=== PATIENT | female | born 1955 | race Caucasian/White ===

== ENCOUNTER 2022-08-12 10:59 | Outpatient (CLI) | payer MEDICARE, OTHER, SELFPAY ==
[2022-08-12 20:14] LABS: Alanine Aminotransferase 26 U/L (6-35); Albumin Level 4.2 g/dL (3.5-5.1); Alkaline Phosphatase 68 U/L (38-126); Anion Gap 9 mmol/L (8-16); Aspartate Amino Transferase 36 U/L (14-36); Bilirubin,Total 0.5 mg/dL (0.2-1.3); Blood Urea Nitrogen 19 mg/dL (7-17); Calcium 8.8 mg/dL (8.4-10.2); Carbon Dioxide 25 mmol/L (22-30); Chloride 106 mmol/L (98-107); Cholesterol 159 mg/dL (0-200); Estimated Glomerular Filt Rate 55; Glucose 106 mg/dL (65-110); HDL Direct 46 mg/dL; Potassium 4.8 mmol/L (3.4-5.0); Sodium 140 mmol/L (137-145); Triglycerides 104 mg/dL (<150)
[2022-08-12 20:25] LABS: LDL Cholesterol Direct 83 mg/dL
[2022-08-12 20:34] LABS: Hemoglobin A1C 5.7 % (<5.7)
== END 2022-08-12 11:00 | disposition home or self-care (01) ==
LOC: ANHGOSHLAB 11:00
PROVIDERS: PCP Family Medicine; Visit Provider Family Medicine
DX: Z13.228 Encounter for screening for other metabolic disorders (principal); R73.01 Impaired fasting glucose; E78.5 Hyperlipidemia, unspecified; E03.9 Hypothyroidism, unspecified
CPT/HCPCS: 36415; 80053; 80061; 83036; 84443

== ENCOUNTER 2023-07-05 11:22 | Outpatient (CLI) | payer MEDICARE, OTHER, SELFPAY ==
[2023-07-05 14:26] LABS: Basophils Absolute Auto 0.1 K/mm3 (0.0-0.1); Basophils Percent Auto 0.7 % (0.2-1.2); Eosinophils Absolute Auto 0.2 K/mm3 (0-0.3); Eosinophils Percent Auto 2.7 % (0-4.4); Hematocrit 40.2 % (37.0-47.0); Hemoglobin 12.8 g/dL (12.0-15.0); Immature Granulocyte Absolute 0.02 K/mm3 (0.00-0.031); Immature Granulocyte Percent A 0.2 % (0-0.5); Lymphocytes Absolute Auto 2.58 K/mm3 (0.9-3.2); Lymphocytes Percent Auto 30.7 % (18.3-44.2); Mean Corpuscular HGB Conc 31.8 g/dl (32-36); Mean Corpuscular Hemoglobin 27.7 pg (26-34); Mean Platelet Volume 11.9 fl (7.4-10.4); Monocytes Absolute Auto 0.6 K/mm3 (0.1-0.6); Monocytes Percent Auto 7.3 % (2.6-8.5); Neutrophils Absolute Auto 4.9 K/mm3 (1.3-6.7); Neutrophils Percent Auto 58.4 % (45.5-73.1); Platelet Count Result 151 k/mm3 (150-375); Red Blood Count 4.62 M/mm3 (4.2-5.4); Red Cell Distribution Width 13.5 % (11.5-14.5); White Blood Count 8.4 K/mm3 (4.5-10.0)
[2023-07-05 14:41] LABS: Alanine Aminotransferase 39 U/L (6-35); Alkaline Phosphatase 65 U/L (38-126); Anion Gap 7 mmol/L (8-16); Aspartate Amino Transferase 43 U/L (14-36); Bilirubin,Total 0.9 mg/dL (0.2-1.3); Blood Urea Nitrogen 22 mg/dL (7-17); Calcium 8.8 mg/dL (8.4-10.2); Carbon Dioxide 25 mmol/L (22-30); Chloride 105 mmol/L (98-107); Estimated Glomerular Filt Rate 41; Glucose 113 mg/dL (65-110); Potassium 4.9 mmol/L (3.4-5.0); Sodium 137 mmol/L (137-145)
[2023-07-05 14:54] LABS: NT Pro B Type Natriuretic Pept > 30000 pg/mL (19.9-100)
[2023-07-10 23:51] LABS: Vitamin D 1,25 (OH)2 Total 49 pg/mL (18-72); Vitamin D2 1,25 (OH)2 <8 pg/mL; Vitamin D3 1,25 (OH)2 49 pg/mL
== END 2023-07-05 11:23 | disposition home or self-care (01) ==
PROVIDERS: PCP Family Medicine; Visit Provider Nurse Practitioner Family
DX: R06.02 Shortness of breath (principal); I10 Essential (primary) hypertension; E03.9 Hypothyroidism, unspecified; E55.9 Vitamin D deficiency, unspecified
CPT/HCPCS: 36415; 80053; 82607; 82652; 83880; 84443; 85025

== ENCOUNTER → 2023-07-05 11:36 | Outpatient (CLI) | payer MEDICARE, OTHER, SELFPAY ==
--- NOTE | ~2023-07-05 | XR_ITS ---
XR chest 2V 07/05/2023 11:53 Indication: Shortness of breath. Cough. Procedure: 2 view chest Comparison: 11/05/2010 Findings: Heart size normal. Chronic left basilar atelectasis/scarring. There are surgical changes of the left axilla. Right subclavian pacemaker lead tip in the right atrium. No focal air space disease , pulmonary edema, pleural effusion or suspected pneumothorax. Impression: 1: No acute cardiopulmonary disease. Reviewed, dictated and finalized at location L. Impression: 1: No acute cardiopulmonary disease.
== END ==
PROVIDERS: PCP Family Medicine; Visit Provider Nurse Practitioner Family
DX: R06.02 Shortness of breath (principal); R05.9 Cough, unspecified
CPT/HCPCS: 71046

== ENCOUNTER 2023-07-05 15:33 | Observation (INO) | payer MEDICARE, OTHER, SELFPAY ==
[2023-07-05] VITALS (19 sets, daily range): BP systolic 121–137; BP diastolic 80–101; PULSE 76–96; RESP 16–21; TEMP 36.6–37.1; O2SAT 98–100
--- NOTE | ~2023-07-05 | NM_ITS ---
EXAMINATION: NM lung vent and perfusion DATE: 07/05/2023 23:30 INDICATION: Shortness of breath. TECHNIQUE: 21.3 mCi Xenon-133 was administered for ventilation images. 5.01 mCi Tc-99m MAA was admini stered intravenously for perfusion images. Scintigraphic images of the chest were obtained. COMPARISON: Chest 2 views 07/05/2023 FINDINGS: The single breath ventilation image is normal. Ventilation images demonstrate diffuse retention bilat erally. Perfusion images demonstrate small matched defects in the lower lobes and upper lobes. IMPRESSION: 1. Low probability for pulmonary emboli. Reviewed, dictated and finalized at location A.
--- NOTE | ~2023-07-05 | US_ITS ---
EXAMINATION: US right upper quadrant DATE: 07/06/2023 08:56 INDICATION: Epigastric pain TECHNIQUE: Multiple grayscale and Doppler ultrasound images of the abdomen were obtained. COMPARISON: None available FINDINGS: The head, body, and tail of the pancreas are normal. The liver is normal with normal echoge nicity and echotexture. No surface nodularity. Normal hepatopetal flow in the main portal vein. The g allbladder is normal with no abnormal wall thickening, pericholecystic fluid or stones. The normal co mmon bile duct measures 3 mm. There was no sonographic Hickey sign. IMPRESSION: 1. Normal sonographic study of the gallbladder. Reviewed, dictated and finalized at location A.
--- NOTE | ~2023-07-05 | CT_ITS ---
EXAMINATION: CT abdomen pelvis wo con DATE: 07/05/2023 21:26 INDICATION: Abdominal pain TECHNIQUE: Computed tomography (CT) of the abdomen and pelvis was performed without intravenous contr ast. Automated exposure control and iterative reconstruction technique were employed. The dose-length product was 352.51 mGy-cm. COMPARISON: None FINDINGS: Smooth septal line thickening at the bilateral lung bases consistent with mild pulmonary edema. There are also small bilateral posterior layering pleural effusions. Mild atelectasis in the anterior left lower lobe and medial right middle lobe. Cardiomegaly. Small amount of atherosclerotic coronary dillan ry calcific lesion. No pericardial effusion. Distal tip of a single lead cardiac pacemaker/defibrilla tor positioned along the inferior basilar wall of the right ventricle. Liver is normal. No intra or e xtra hepatic biliary ductal dilation. There is subtle haziness to the fat surrounding the gallbladder which is nondistended but with gradient of increasing density dependently which could represent laye ring sludge, gallstones or potentially vicariously excreted contrast if there is been prior contrast administration. Pancreas, spleen and bilateral adrenal glands are normal. There is mild bilateral per inephric stranding along the otherwise normal appearing kidneys. Normal appendix. No bowel obstructio n or abnormal bowel wall thickening. Bladder, uterus and bilateral adnexa are unremarkable. Small sylwia unt of free fluid in the cul-de-sac. No tai peroneal gas. No pathologically enlarged upper abdomina l or pelvic lymphadenopathy. Mild lumbar and lower thoracic spondylosis. Transitional L5 segment whic h is sacralized on the left. IMPRESSION: 1. Likely congestive heart failure with cardiomegaly, mild pulmonary edema and very small bilateral p leural effusions. 2. Subtle haziness to the fat surrounding the gallbladder which demonstrates posterior layering sludg e and sludge or gallstones. There is however no evident gallbladder dilation to suggest acute cholecy stitis and the haziness to the fat along with the small amount of perinephric stranding could also be related to congestive heart failure. Could consider further evaluation with right upper quadrant ult rasound as clinically indicated. Reviewed, dictated and finalized at location A. IMPRESSION: 1. Likely congestive heart failure with cardiomegaly, mild pulmonary edema and very small bilateral pleural effusions. 2. Subtle haziness to the fat surrounding the gallbladder which demonstrates po sterior layering sludge and sludge or gallstones. There is however no evident g allbladder dilation to suggest acute cholecystitis and the haziness to the fat along with the small amount of perinephric stranding could also be related to c ongestive heart failure. Could consider further evaluation with right upper malcolm drant ultrasound as clinically indicated.
--- NOTE | 2023-07-05 16:14 | ECG_ITS ---
Measurements Intervals [place] Rate: 91 P: 77 GA: 179 QRS: -46 QRSD: 121 T: 114 QT: 371 QTc: 459 Interpretive Statements SINUS RHYTHM WITH SINUS ARRHYTHMIA LEFT ATRIAL ENLARGEMENT [-0.15mV P WAVE IN V1/V2] MARKED LEFT AXIS DEVIATION [QRS AXIS < -30] POSSIBLE ANTERIOR MYOCARDIAL INFARCTION , OF INDETERMINATE AGE [30 ms Q WAVE IN V3/V4, OR R < 0.2 mV IN V4] MODERATE T-WAVE ABNORMALITY, CONSIDER LATERAL ISCHEMIA [-0.1+ mV T WAVE IN I/aVL/V5/V6] NO PREVIOUS ECG AVAILABLE FOR COMPARISON Electronically Signed On 07-06-2023 11:32:53 CDT by Dillon Son M.D.
[2023-07-05 17:15] LABS: Troponin I 0.016 ng/mL (0.000-0.034)
--- NOTE | 2023-07-05 20:40 | ED.SOB ---
HPI - SOB/Dyspnea General Chief Complaint: Recheck/Abnormal Lab/Rx <Clair Polo PA-C - Last Filed: 07/06/23 02:06> Stated Complaint: abnormal labs <MAMADOU Rincon Last Filed: 07/06/23 02:06> Time Seen by Provider: 07/05/23 19:49 <MAMADOU Rincon Last Filed: 07/06/23 02:06> Source: patient <MAMADOU Rincon Last Filed: 07/06/23 02:06> Mode of arrival: ambulatory <MAMADOU Rincon Last Filed: 07/06/23 02:06> Limitations: no limitations <MAMADOU Rincon Last Filed: 07/06/23 02:06> History of Present Illness HPI Narrative: A 68-year-old female that presents to the emergency department for dyspnea. Ongoing over the last several days. Worse with lying flat. Was evaluated our primary office and told to come to the ER for an elevated BNP. Reports she thought she had a viral infection she has been struggling with some abdominal pain and nausea. Denies any fever, cough, chest pain, vomiting, or lower extremity edema. <MAMADOU Rincon Last Filed: 07/06/23 02:06> Related Data Home Medications: Home Medications Medication Instructions Recorded Confirmed carvedilol 12.5 mg tablet 12.5 mg PO QAM 08/12/22 07/06/23 carvedilol 25 mg tablet 25 mg PO DAILY 08/12/22 07/06/23 <MAMADOU Rincon Last Filed: 07/06/23 02:06> Allergies/Adverse Reactions: Allergies Allergy/AdvReac Type Severity Reaction Status Date / Time lisinopril Allergy Unknown unknown Verified 07/06/23 03:31 <MAMADOU Rincon Last Filed: 07/06/23 02:06> Review of Systems Review of Systems: CONSTITUTIONAL: Denies fever CARDIOVASCULAR: Denies chest pain, palpitations, or edema. RESPIRATORY: Reports dyspnea. Denies cough GASTROINTESTINAL: Reports abdominal pain, nausea. Denies vomiting, or diarrhea. GENITOURINARY: Denies dysuria <Clair Polo PA-C - Last Filed: 07/06/23 02:06> All systems reviewed & are unremarkable except as noted in HPI and below <Clair Polo PA-C - Last Filed: 07/06/23 02:06> FORMERLY [facility] Past Medical History Medical History: Medical History (Updated 07/06/23 @ 01:10 by Clair Polo PA-C) Cardiomyopathy Hypothyroidism (acquired) Irritable bowel syndrome without diarrhea Other hyperlipidemia Personal history of malignant neoplasm of breast <Clair Polo PA-C - Last Filed: 07/06/23 02:06> Surgical History Surgical History: Surgical History H/O eye surgery <Clair Polo PA-C - Last Filed: 07/06/23 02:06> Family History Family History: Family History Sibling Asthma Mother Family history of aortic aneurysm, Onset Age: 35 Father Acute myocardial infarction Other Family history of migraine headaches Hypothyroidism (acquired) <Clair Polo PA-C - Last Filed: 07/06/23 02:06> Social History Social History: Social History Smoking status: Never smoker Second hand tobacco smoke exposure: No Alcohol intake: never Substance use: never Substance use type: does not use Lack of Transportation: No Lack of Food: Never True Current Housing: I Have Housing Concerned About Future Housing: No Difficulty Paying Gas/Electric Bills: No Difficulty Paying for Meds: No Currently Unemployed: No Education: High School Diploma/GED Difficulty w/ Childcare or Family Care: No Living arrangements: with family Additional living arrangements comments: Daughter, and Children Occupation/Education: retired Gender identity (if verbalized by the patient): Female Sexual Orientation (if Verbalized by the Patient): Straight or Heterosexual Spiritual care concerns: No Agree to blood products: Yes <Clari Polo PA-C - Last Filed: 07/06/23 02:06> Exam Narrative: GENERAL: Well-wilberto
[2023-07-05 21:00] LABS: INR 1.2; Prothrombin Time 15.3 Seconds (11.1-14.7)
[2023-07-05 21:01] LABS: Partial Thromboplastin Time 29.8 SECONDS (22.3-36.8)
[2023-07-05 21:03] LABS: D Dimer 0.85 ug/mL (<0.48)
[2023-07-05] MEDS: carvediloL 25 MG TABLET PO (21:14)
[2023-07-05] MEDS: FUROSEMIDE INJ 40 MG/4 ML VIAL IV PUSH (22:07)
[2023-07-05 22:09] LABS: Influenza A QL RT-PCR Negative (Negative); Influenza B QL RT-PCR Negative (Negative); SARS-CoV-2 RNA PCR Negative (Negative)
[2023-07-06] VITALS (13 sets, daily range): BP systolic 81–127; BP diastolic 59–85; PULSE 57–98; RESP 16–20; TEMP 36.6–36.8; O2SAT 95–99; BMI 22.6
--- NOTE | 2023-07-06 | ECHO_ITS ---
Patient Info Name: Mahsa Hernandez Age: 68 years : 1955 Gender: Female Ht: 66 in Wt: 140 lbs BSA: 1.72 m2 HR: 70 bpm BP: 121 / 79 mmHg Heart Rhythm: Sinus Rhythm Technical Quality: Fair Exam Date: 07/06/2023 4:44 PM Exam Location: [facility] Patient Status: Inpatient Admit Date: 07/06/2023 Staff Ordering Physician: Dillon Son MD (dipak/velvet) Roll Examiner: Mary Malhotra RDCS Attending Provider: Kristian Brown MD Referring Physician: Huy DAVENPORT; Exam Type: CA echo doppler color flow Study Info Indications - chf Complete two-dimensional, color flow and Doppler transthoracic echocardiogram is performed. Summary 1. Complete two-dimensional, color flow and Doppler transthoracic echocardiogram is performed. 2. Left ventricular chamber dimension is moderately enlarged. 3. Left ventricular systolic function is severely reduced, estimated at 20-25%. 4. Right ventricular systolic function is normal. 5. There is mild aortic valve regurgitation. 6. There is mild mitral valve regurgitation. 7. There is trivial anterior pericardial effusion. Left Ventricle Left ventricular chamber dimension is moderately enlarged. Left ventricular systolic function is severely reduced, estimated at 20-25%. There is no increased left ventricular wall thickness. Right Ventricle Linear artifact in right ventricle suggestive of catheter(s), pacemaker lead(s), or ICD lead(s). Right ventricular chamber dimension is normal. Right ventricular systolic function is normal. Left Atria Left atrial chamber dimension is normal. Right Atria Linear artifact in the right atrium suggestive of catheter(s), pacemaker lead(s), or ICD lead(s). Right atrial chamber dimension is normal. Atrial Septum Intact interatrial septum visualized by color flow imaging. Aortic Valve The aortic valve is trileaflet. There is mild aortic valve sclerosis. There is no aortic valve stenosis. There is mild aortic valve regurgitation. Pulmonic Valve The pulmonic valve is not well visualized. Mitral Valve There is mild mitral valve regurgitation. Tricuspid Valve There is trace tricuspid valve regurgitation. Pericardium/Pleural There is trivial anterior pericardial effusion. Inferior Vena Cava Normal inferior vena cava with >50% collapse upon inspiration consistent with normal right atrial pressure, 3 mmHg. Aorta The aortic root size at the sinus of Valsalva is normal. Left Ventricular Outflow Tract Name Value Normal LVOT 2D LVOT Diameter 2.0 cm LVOT Doppler LVOT Peak Gradient 3 mmHg LVOT Mean Gradient 1 mmHg LVOT VTI 12 cm LVOT VTI/AV VTI Ratio 0.5 LVOT Stroke Volume 37 ml LVOT CO 2.3 l/min LVOT CI 1.3 l/min/m2 Pulmonic Valve Name Value Normal RVOT Doppler
[2023-07-06 00:53] LABS: Lipase 115 U/L (23-300)
--- NOTE | 2023-07-06 00:58 | PM.IMHP ---
H&P: HPI History of Present Illness Date/Time: 07/06/23 00:58 Chief Complaint: Shortness of breath Narrative: This is a 68-year-old female with past medical history significant for congestive heart failure, hypothyroidism, cardiomyopathy, irritable bowel syndrome, dyslipidemia. Patient presents to the emergency room with complaints of shortness of breath, abdominal discomfort, had been to see her primary care physician and was advised to come to the emergency room. Patient denies any chest pain, palpitations, leg swelling, pedal swelling, no nausea, vomiting, diarrhea, no cough, no sputum production [place] [id number]. Patient is been admitted for further evaluation management and treatment. XR chest 2V 07/05/2023 11:53 Indication: Shortness of breath. Cough. Procedure: 2 view chest Comparison: 11/05/2010 Findings: Heart size normal. Chronic left basilar atelectasis/scarring. There are surgical changes of the left axilla. Right subclavian pacemaker lead tip in the right atrium. No focal air space disease, pulmonary edema, pleural effusion or suspected pneumothorax. Impression: 1: No acute cardiopulmonary disease. EXAMINATION: CT abdomen pelvis wo con DATE: 07/05/2023 21:26 INDICATION: Abdominal pain TECHNIQUE: Computed tomography (CT) of the abdomen and pelvis was performed without intravenous contrast. Automated exposure control and iterative reconstruction technique were employed. The dose-length product was 352.51 mGy-cm. COMPARISON: None FINDINGS: Smooth septal line thickening at the bilateral lung bases consistent with mild pulmonary edema. There are also small bilateral posterior layering pleural effusions. Mild atelectasis in the anterior left lower lobe and medial right middle lobe. Cardiomegaly. Small amount of atherosclerotic coronary artery calcific lesion. No pericardial effusion. Distal tip of a single lead cardiac pacemaker/defibrillator positioned along the inferior basilar wall of the right ventricle. Liver is normal. No intra or extra hepatic biliary ductal dilation. There is subtle haziness to the fat surrounding the gallbladder which is nondistended but with gradient of increasing density dependently which could represent layering sludge, gallstones or potentially vicariously excreted contrast if there is been prior contrast administration. Pancreas, spleen and bilateral adrenal glands are normal. There is mild bilateral perinephric stranding along the otherwise normal appearing kidneys. Normal appendix. No bowel obstruction or abnormal bowel wall thickening. Bladder, uterus and bilateral adnexa are unremarkable. Small amount of free fluid in the cul-de-sac. No tai peroneal gas. No pathologically enlarged upper abdominal or pelvic lymphadenopathy. Mild lumbar and lower thoracic spondylosis. Transitional L5 segment which is sacralized on the left. IMPRESSION: 1. Likely congestive heart failure with cardiomegaly, mild pulmonary edema and very small bilateral pleural effusions. 2. Subtle haziness to the fat surrounding the gallbladder which demonstrates posterior layering sludge and sludge or gallstones. There is however no evident gallbladder dilation to suggest acute cholecystitis and the haziness to the fat along with the small amount of perinephric stranding could also be related to congestive heart failure. Could consider further evaluation with right upper quadrant ultrasound as clinically indicated. Review of Systems Review of Systems: Shortness of breath, abdominal discomfort. Constitutional: Constitutional: Denies chills, Denies fatigue, Denies fever(s), Denies night sweats and Denies poor appetite Eyes: Eyes: Denies change in vision ENT: Denies dysphagia and Denies odynophagia Cardiovascular: Cardiovascular: Denies pedal edema, Denies irregular heart rhythm, Denies leg edema, Denies radiating jaw, neck or arm pain, Denies palpitations an
--- NOTE | 2023-07-06 03:05 | ADMGEN ---
This patient, Mahsa Hernandez, was admitted to 2 Medical Room 253-01. Patient/family oriented to hospital policies and general routines including ID bracelet, bed and alarms, visiting hours, pain management, procedures, bathroom and other care routines, personal items, smoking policy, room service/diet, and visiting hours. Information on how to activate the Rapid Response Team has been discussed. Patient/Family are encouraged to report perceived risks to care and to ask questions if they do not understand what they are told or what they should do.
--- NOTE | 2023-07-06 09:24 | PM.CNCAR ---
Assessment and Plan Assessment and plan (1) Acute on chronic systolic heart failure: Code(s): I50.23 - Acute on chronic systolic (congestive) heart failure Status: Acute Assessment and Plan: Continue with IV Lasix 40mg QD. Please monitor strict I/Os. Continue home meds of Coreg 12.5mg in the AM, Coreg 25mg in the PM, Losartan 100mg. Limited optimization of GDMT due to symptomatic hypotension in the past. Will obtain an echocardiogram. Last echocardiogram in 2019 showed LVEF 40%. (2) Palpitations: Code(s): R00.2 - Palpitations Status: Acute Assessment and Plan: Tele without any arrhythmias thus far. Continue tele monitoring. Will also have her device interrogated. (3) Presence of automatic implantable cardioverter-defibrillator: Code(s): Z95.810 - Presence of automatic (implantable) cardiac defibrillator Status: Acute Assessment and Plan: Device interrogation as above. Plan Outpatient follow up with Dr. Dodge. History of Present Illness History of Present Illness Consult date/time: 07/06/23 09:24 Requesting physician: Kristian Brown MD Consult reason: Other (Palpitations / SOB) Reason For Visit: CHF Exaberation,Epigastric Pain Narrative: We are consulted for congestive heart failure, palpitations. Patient is a 68 year old female who sees Dr. Dodge in clinic. 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 single lead ICD, history of PVCs and palpitations, history of breast cancer s/p chemotherapy and radiation therapy, hypothyroidism. Patient presented with shortness of breath and orthopnea for the past couple of days. + Orthopnea. Feels a pounding sensation type of palpitations, which she has had before. No lower extremity edema. Takes Lasix PRN at home. Her BNP is >30,000. Troponin negative. CXR without acute findings. CT A/P done for abdominal pain which showed cardiomegaly, mild pulmonary edema, and very small bilateral pleural effusions. There is also subtle haziness to the fat surrounding the gallbladder which demonstrates posterior layering sludge and sludge or gallstones. A V/Q scan was also done which is low probability for PE. RUQ US ordered due to CT findings, which show normal study of the gallbladder. Patient last saw Dr. Dodge in May 2023. An echocardiogram was ordered at that time, which is scheduled for 07/15. Review of Systems Review of Systems: All systems reviewed & are unremarkable except as noted in HPI and below (HPI) FORMERLY [facility] Past Medical History Medical History Cardiomyopathy Hypothyroidism (acquired) Irritable bowel syndrome without diarrhea Other hyperlipidemia Personal history of malignant neoplasm of breast Surgical History Surgical History H/O eye surgery Family History Family History Sibling Asthma Mother Family history of aortic aneurysm, Onset Age: 35 Father Acute myocardial infarction Other Family history of migraine headaches Hypothyroidism (acquired) Social History Social History Smoking status: Never smoker Second hand tobacco smoke exposure: No Alcohol intake: never Substance use: never Substance use type: does not use Lack of Transportation: No Lack of Food: Never True Current Housing: I Have Housing Concerned About Future Housing: No Difficulty Paying Gas/Electric Bills: No Difficulty Paying for Meds: No Currently Unemployed: No Education: High School Diploma/GED Difficulty w/ Childcare or Family Care: No Living arrangements: with family Additional living arrangements comments: Daughter, and Children Occupation/Education: retired Gender identity (if verbalized by the patient): Female Sexual Orientation
[2023-07-06] MEDS: LOSARTAN POTASSIUM 100 MG TABLET PO (09:58)
[2023-07-06] MEDS: ATORVASTATIN 40 MG TABLET PO (09:58)
[2023-07-06] MEDS: carvediloL 12.5 MG TABLET PO (09:58)
[2023-07-06] MEDS: LEVOTHYROXINE SODIUM 50 MCG TABLET PO (09:58)
[2023-07-06] MEDS: FUROSEMIDE INJ 40 MG/4 ML VIAL IV PUSH (10:18)
--- NOTE | 2023-07-06 11:51 | PM.IMPN ---
Progress Note: A&P Assessment and Plan (1) Shortness of breath: Code(s): R06.02 - Shortness of breath Status: Acute Assessment and Plan: Secondary to CHF. EF last known is 40%. Acute, systolic. Continue diuretic therapy. Continue cardiac regimen. Appreciate cardiology input (2) Cardiomyopathy: Qualifiers: Cardiomyopathy type: due to drug Qualified Code(s): I42.7 - Cardiomyopathy due to drug and external agent Code(s): I42.9 - Cardiomyopathy, unspecified Status: Acute (3) Presence of automatic implantable cardioverter-defibrillator: Code(s): Z95.810 - Presence of automatic (implantable) cardiac defibrillator Status: Acute (4) CHF (NYHA class IV, ACC/AHA stage D): Code(s): I50.84 - End stage heart failure Status: Acute Subjective Date/time seen: 07/06/23 11:51 Interval history: Breathing better. Exam Narrative: Patient is sitting in the stretcher Const: General: comfortable, no acute distress, well developed, alert, awake and average body habitus Nutritional Appearance: average body habitus Orientation/consciousness: patient oriented x3 HENMT: Head: normal to inspection, normocephalic and atraumatic Ears: hearing grossly normal bilaterally Face/Nose/Sinus: normal facial exam Face and sinus: normal facial exam Eyes: General: appearance normal, both eyes and all related structures Pupils: Equal, round and reactive pupils present EOM: EOMs intact bilaterally Neck: Neck: full ROM, no lymphadenopathy and no JVD Thyroid: thyroid normal Lymphatic: no lymphadenopathy noted Resp: Effort & Inspection: normal respiratory effort and able to speak in complete sentences Auscultation: rales Cardio: Jugular venous distension: no JVD Rate: regular rate Rhythm: regular rhythm Heart sounds: S1 normal heart sound present and S2 normal heart sound present : General: Yes deferred Skin: Rashes: no rashes Wounds: no wounds Neuro: General: patient oriented x3 and CN's II-XI intact bilaterally Cranial nerves: Yes CN's II-XII intact bilaterally and Yes Equal, round and reactive pupils present Cognition (Neuro): normal cognition Speech: normal speech Gait exam (Neuro): Normal gait present Motor exam (neuro): 5/5 motor strength present throughout Extrem: General: normal to inspection, full ROM, no joint enlargement and no pedal edema Objective Data Vital Signs Vital Signs: Vital Signs - 24 hr 07/05/23 16:08 07/05/23 19:26 07/05/23 19:27 Temperature 98.7 F 98 F Pulse Rate 96 92 Respiratory Rate 18 21 H Blood Pressure 121/89 131/96 H Pulse Oximetry 98 99 100 Oxygen Delivery Room Air Room Air 07/05/23 21:14 07/05/23 19:46 07/05/23 20:00 Temperature Pulse Rate 91 85 86 Respiratory Rate 18 20 Blood Pressure 131/96 H Pulse Oximetry Oxygen Delivery 07/05/23 20:02 07/05/23 20:15 07/05/23 20:45 Temperature Pulse Rate 95 87 91 Respiratory Rate 17 20 17 Blood Pressure 136/101 H Pulse Oximetry Oxygen Delivery 07/05/23 21:00 07/05/23 21:01 07/05/23 21:02 Temperature Pulse Rate 91 85 82 Respiratory Rate 20 16 16 Blood Pressure 137/96 H 132/98 H Pulse Oximetry Oxygen Delivery 07/05/23 21:16 07/05/23 21:30 07/05/23 21:39 Temperature Pulse Rate 91 96 84 Respiratory Rate 19 17 18 Blood Pressure 134/101 H 124/81 Pulse Oximetry Oxygen Delivery 07/05/23 21:45 07/05/23 21:46 07/05/23 22:00 Temperature Pulse Rate 84 82 87 Respiratory Rate 17 19 18 Blood Pressure 130/82 Pulse Oximetry Oxygen Delivery 07/05/23 22:02 07/06/23 00:28 07/06/23 03:02 Temperature 97.8 F Pulse Rate 76 82 98 Respiratory Rate 20 17 20 Blood Pressure 132/80 127/85 121/79 Pulse Oximetry 96 99 Oxygen Delivery 07/06/23 04:00 07/06/23 09:58 Temperature Pulse Rate 84 70 Respiratory Rate Blood Pressure Pulse Oximetry Oxygen Delivery Intake/Output Intake
[2023-07-06] MEDS: ACETAMINOPHEN 325 MG TABLET 650 MG PO (16:23)
--- NOTE | 2023-07-06 17:02 | PC.NURSE ---
On 07/06/23, the Licence pending nurse, Miguelina Irvin, provided care and completed [facility] documentation on this patient. I have reviewed the Licence pending nurses documentation and agree with the findings.
[2023-07-07] VITALS: PULSE 59
[2023-07-07 04:00] VITALS: PULSE 60
[2023-07-07 05:37] VITALS: BP 100/62; PULSE 67; RESP 18; TEMP 36.4; O2SAT 94
[2023-07-07 06:32] LABS: Basophils Absolute Auto 0.1 K/mm3 (0.0-0.1); Basophils Percent Auto 0.6 % (0.2-1.2); Eosinophils Absolute Auto 0.4 K/mm3 (0-0.3); Eosinophils Percent Auto 4.6 % (0-4.4); Hematocrit 40.3 % (37.0-47.0); Hemoglobin 13.2 g/dL (12.0-15.0); Immature Granulocyte Absolute 0.02 K/mm3 (0.00-0.031); Immature Granulocyte Percent A 0.2 % (0-0.5); Lymphocytes Absolute Auto 2.63 K/mm3 (0.9-3.2); Lymphocytes Percent Auto 31.1 % (18.3-44.2); Mean Corpuscular HGB Conc 32.8 g/dl (32-36); Mean Corpuscular Volume 85.4 fl (80-100); Monocytes Absolute Auto 0.8 K/mm3 (0.1-0.6); Monocytes Percent Auto 9.1 % (2.6-8.5); Neutrophils Absolute Auto 4.6 K/mm3 (1.3-6.7); Neutrophils Percent Auto 54.4 % (45.5-73.1); Platelet Count Result 159 k/mm3 (150-375); Red Blood Count 4.72 M/mm3 (4.2-5.4); Red Cell Distribution Width 13.5 % (11.5-14.5); White Blood Count 8.5 K/mm3 (4.5-10.0)
[2023-07-07 06:43] LABS: Anion Gap 5 mmol/L (8-16); Blood Urea Nitrogen 29 mg/dL (7-17); Calcium 8.7 mg/dL (8.4-10.2); Carbon Dioxide 30 mmol/L (22-30); Chloride 99 mmol/L (98-107); Estimated CRCL calculation 34 ml/min; Estimated Glomerular Filt Rate 41; Glucose 105 mg/dL (65-110); Potassium 3.6 mmol/L (3.4-5.0); Sodium 134 mmol/L (137-145)
[2023-07-07] MEDS: LEVOTHYROXINE SODIUM 50 MCG TABLET PO (06:51)
[2023-07-07 08:04] VITALS: PULSE 65
[2023-07-07 08:55] VITALS: BP 103/63; PULSE 75; O2SAT 97
--- NOTE | 2023-07-07 10:18 | PM.PNCARD ---
Progress Note: A&P Assessment and Plan (1) Acute on chronic systolic heart failure: Code(s): I50.23 - Acute on chronic systolic (congestive) heart failure Status: Acute Assessment and Plan: Last echocardiogram in 2019 showed LVEF 40%. Echocardiogram here 07/06 shows LVEF is now 20-25%. Limited optimization of GDMT due to symptomatic hypotension in the past. Continue with Losartan 100mg. Recommend stopping IV Lasix and starting PO Lasix 20mg QD. Was taking Coreg 12.5mg in the AM and 25mg in the PM however was changed to 12.5mg BID due to soft blood pressures yesterday evening. Agree with Coreg 12.5mg BID, especially since we are starting daily Lasix to avoid hypotension. Okay to discharge patient home. Will arrange follow up with Dr. Dodge. (2) Palpitations: Code(s): R00.2 - Palpitations Status: Acute Assessment and Plan: No significant arrhythmias on tele. ICD interrogation unremarkable. (3) Presence of automatic implantable cardioverter-defibrillator: Code(s): Z95.810 - Presence of automatic (implantable) cardiac defibrillator Status: Acute Assessment and Plan: ICD interrogation unremarkable. Plan Recommendations/plan discussed with Hospitalist. Subjective Date/time seen: 07/07/23 10:18 Interval history: Reason for visit: Acute on chronic systolic heart failure HPI: Patient is a 68 year old female who sees Dr. Dodge in clinic. 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 single lead ICD, history of PVCs and palpitations, history of breast cancer s/p chemotherapy and radiation therapy, hypothyroidism. Patient presented with shortness of breath and orthopnea for the past couple of days. + Orthopnea. Feels a pounding sensation type of palpitations, which she has had before. No lower extremity edema. Takes Lasix PRN at home. Her BNP is >30,000. Troponin negative. CXR without acute findings. CT A/P done for abdominal pain which showed cardiomegaly, mild pulmonary edema, and very small bilateral pleural effusions. There is also subtle haziness to the fat surrounding the gallbladder which demonstrates posterior layering sludge and sludge or gallstones. A V/Q scan was also done which is low probability for PE. RUQ US ordered due to CT findings, which show normal study of the gallbladder. Patient last saw Dr. Dodge in May 2023. An echocardiogram was ordered at that time, which is scheduled for 07/15. Date of service 07/07: Feeling better. No chest pain. Shortness of breath is much better. Review of Systems Review of Systems: 8 point ROS obtained. Negative, unless stated in HPI. Exam Const: General: comfortable and no acute distress HENMT: Mouth: Yes moist mucous membranes Eyes: General: appearance normal, both eyes and all related structures Sclera: sclerae normal Resp: Effort & Inspection: normal respiratory effort Cardio: Rate: regular rate Rhythm: regular rhythm Skin: General skin exam: normal color Neuro: Speech: normal speech Psych: Mental Status: mental status grossly normal Affect: normal affect Objective Data Vital Signs Vital Signs: Vital Signs - 24 hr 07/06/23 14:00 07/06/23 17:26 07/06/23 17:27 Temperature 36.7 C Pulse Rate 68 Respiratory Rate 16 Blood Pressure 109/71 92/59 L 93/63 L Pulse Oximetry 95 07/06/23 17:28 07/06/23 12:00 07/06/23 16:00 Temperature Pulse Rate 57 L 63 Respiratory Rate Blood Pressure 81/60 L Pulse Oximetry 07/06/23 20:49 07/06/23 20:00 07/07/23 00:00 Temperature 36.8 C Pulse Rate 76 86 59 L Respiratory Rate 17 Blood Pressure 104/69 Pulse Oximetry 95 07/07/23 04:00 07/07/23 05:37 07/07/23 08:55 Temperature 36.4 C Pulse Rate 60 67 75 Respiratory Rate 18 Blood Pressure 100/62 103/63 Pulse Oximetry 94 97 Intake/Output Intake/Output: Intake & Output 07/04/23 07/05/23 07/06/2307/07
[2023-07-07] MEDS: ACETAMINOPHEN 325 MG TABLET 650 MG PO (10:42)
--- NOTE | 2023-07-07 10:50 | PM.DS ---
DS: Admitting Diagnosis Discharge Date July 07, 2023 Admitting Diagnosis Acute on chronic systolic CHF DS: Discharge Diagnosis Discharge Diagnosis (1) CHF (NYHA class IV, ACC/AHA stage D): Code(s): I50.84 - End stage heart failure Status: Acute Assessment and Plan: Acute on chronic Gentle diuresis Daily BMP Echocardiogram in a.m. Cardiology consult Daily weights Strict I's and O's (2) Shortness of breath: Code(s): R06.02 - Shortness of breath Status: Acute Assessment and Plan: Likely secondary to congestive heart failure exacerbation Continue to monitor (3) Cardiomyopathy: Qualifiers: Cardiomyopathy type: due to drug Qualified Code(s): I42.7 - Cardiomyopathy due to drug and external agent Code(s): I42.9 - Cardiomyopathy, unspecified Status: Acute Assessment and Plan: Echocardiogram in a.m. (4) Presence of automatic implantable cardioverter-defibrillator: Code(s): Z95.810 - Presence of automatic (implantable) cardiac defibrillator Status: Acute Assessment and Plan: Will interrogate device DS: Summary Hospital Course Hospital Course: Patient is 68-year-old female came in with CHF exacerbation. Medications were adjusted and she will be continued on cardioprotective medications but also we increased her Lasix to daily. Otherwise she can follow-up with Cardiology. Time Spent with Patient Time attestation: Total time spent providing and/or coordinating discharge services: Exam Narrative: Patient is sitting in the stretcher Const: General: comfortable, no acute distress, well developed, alert, awake and average body habitus Nutritional Appearance: average body habitus Orientation/consciousness: patient oriented x3 HENMT: Head: normal to inspection, normocephalic and atraumatic Ears: hearing grossly normal bilaterally Face/Nose/Sinus: normal facial exam Face and sinus: normal facial exam Eyes: General: appearance normal, both eyes and all related structures Pupils: Equal, round and reactive pupils present EOM: EOMs intact bilaterally Neck: Neck: full ROM, no lymphadenopathy and no JVD Thyroid: thyroid normal Lymphatic: no lymphadenopathy noted Resp: Effort & Inspection: normal respiratory effort and able to speak in complete sentences Auscultation: rales Cardio: Jugular venous distension: no JVD Rate: regular rate Rhythm: regular rhythm Heart sounds: S1 normal heart sound present and S2 normal heart sound present : General: Yes deferred Skin: Rashes: no rashes Wounds: no wounds Neuro: General: patient oriented x3 and CN's II-XI intact bilaterally Cranial nerves: Yes CN's II-XII intact bilaterally and Yes Equal, round and reactive pupils present Cognition (Neuro): normal cognition Speech: normal speech Gait exam (Neuro): Normal gait present Motor exam (neuro): 5/5 motor strength present throughout Sensory Exam: No Sensory deficit (Neuro) Extrem: General: normal to inspection, full ROM, no joint enlargement and no pedal edema DS: Data Data Completed and Pending Labs on day of discharge: Labs from last 24 hours 07/07/23 06:23 WBC 8.5 RBC 4.72 Hgb 13.2 Hct 40.3 MCV 85.4 MCH 28.0 MCHC 32.8 RDW 13.5 Plt Count 159 MPV 11.0 H Immature Gran % (Auto) 0.2 Neut % (Auto) 54.4 Lymph % (Auto) 31.1 [place] % (Auto) 9.1 H Eos % (Auto) 4.6 H Baso % (Auto) 0.6 Lymph # (Auto) 2.63 [place] # (Auto) 0.8 H Eos # (Auto) 0.4 H Baso # (Auto) 0.1 Abs Immat Gran (auto) 0.02 Absolute Neuts (auto) 4.6 Absolute Nucleated RBC 0.0 Nucleated RBC % 0.0 Sodium 134 L Potassium 3.6 Chloride 99 Carbon Dioxide 30 Anion Gap 5 L BUN 29 H Creatinine 1.30 H Estim Creat Clear Calc 34 Estimated GFR 41 L Glucose 105 Calcium 8.7 Discharge Plan Discharge Attending physician on discharge: Go Alvarado Consulting providers: Nathalia Ervin Discharging Clinician: Lola
--- NOTE | 2023-07-07 14:21 | PC.NURSE ---
On 07/07/23, the Licence pending nurse, Miguelina Irvin, provided care and completed [facility] documentation on this patient. I have reviewed the Licence pending nurse's documentation and agree with the findings.
== END 2023-07-07 12:30 | disposition home or self-care (01) ==
LOC: ANHED 07-06 01:21 → ANH2MED 07-06 01:54
PROVIDERS: Emergency Medicine; Admitting Provider Internal Medicine; Emergency Provider Physician Assistant; PCP Family Medicine; Visit Provider Chiropractor
DX: I50.84 End stage heart failure (principal); R79.89 Other specified abnormal findings of blood chemistry; I42.9 Cardiomyopathy, unspecified; R10.13 Epigastric pain; R00.2 Palpitations; Z20.822 Contact with and (suspected) exposure to COVID-19; Z95.810 Presence of automatic (implantable) cardiac defibrillator; I08.0 Rheumatic disorders of both mitral and aortic valves; R51.9 Headache, unspecified; R94.31 Abnormal electrocardiogram [ECG] [EKG]; E03.9 Hypothyroidism, unspecified; K58.9 Irritable bowel syndrome, unspecified; E78.5 Hyperlipidemia, unspecified; Z79.899 Other long term (current) drug therapy; Z83.49 Family history of other endocrine, nutritional and metabolic diseases
CPT/HCPCS: 36415; 74176; 76705; 78582; 80048; 80053; 82607; 82652; 83690; 83880; 84443; 84484; 85025; 85380; 85610; 85730; 87636; 93005; 93306; 96374; 96376; 99285; A9270; A9540; A9558; G0378; J1940

== ENCOUNTER 2023-07-14 09:51 | Outpatient (CLI) | payer MEDICARE, OTHER, SELFPAY ==
--- NOTE | ~2023-07-14 | US_ITS ---
EXAMINATION: US venous doppler [facility] DATE: 07/14/2023 10:59 INDICATION: Bilateral lower limb pain TECHNIQUE: Quintana scale images without and with compression and Doppler images of the bilateral lower e xtremity veins were obtained. COMPARISON: None FINDINGS: The right common femoral vein, profunda femoral vein, femoral vein, popliteal vein, peroneal trunk, p osterior tibial veins, and greater saphenous vein are patent. The left common femoral vein, profunda femoral vein, femoral vein, popliteal vein, peroneal trunk, po sterior tibial veins, and greater saphenous vein are patent. IMPRESSION: 1. Patent bilateral lower extremity veins. No evidence of deep venous thrombosis. Reviewed, dictated and finalized at location L. IMPRESSION: 1. Patent bilateral lower extremity veins. No evidence of deep venous thrombosi s.
== END 2023-07-14 09:52 | disposition home or self-care (01) ==
PROVIDERS: PCP Family Medicine; Visit Provider Internal Medicine Cardiovascular Disease
DX: M79.661 Pain in right lower leg (principal); R09.89 Other specified symptoms and signs involving the circulatory and respiratory systems
CPT/HCPCS: 93970

== ENCOUNTER 2025-01-28 09:44 | Outpatient (CLI) | payer MEDICARE, OTHER, SELFPAY ==
--- NOTE | ~2025-01-28 | DEXA_ITS ---
Bone Density Report Name: SALIAM SOSA Age: 69 Sex: Female Ethnicity: White Date of : 1955 Indication: postmenopausal; screening for osteoporosis; history of glucocorticoids; Referring Provider: Salima Jon Study: Bone densitometry was performed. Exam Date: January 28, 2025 Accession number: [id number] Bone Density: Region BMD T-score Z-score Classification AP Spine(L1-L4) 0.835 -1.9 0.2 Osteopenia Femoral Neck (Left) 0.550 -2.7 -0.9 Osteoporosis Total Hip (Left) 0.712 -1.9 -0.4 Osteopenia Femoral Neck (Right) 0.532 -2.9 -1.0 Osteoporosis Total Hip (Right) 0.700 -2.0 -0.4 Osteopenia Femoral Neck Mean 0.541 -2.8 -0.9 Osteoporosis Total Hip Mean 0.706 -1.9 -0.4 Osteopenia World Health Organization criteria for BMD impression classify patients as: Normal (T-score at or above -1.0), Osteopenia (T-score between -1.0 and -2.5), or Osteoporosis (T-score at or below -2.5). 10-year Fracture Risk: FRAX not reported because: Some T-score for Spine Total or Hip Total or Femoral Neck at or below -2.5 Treated for osteoporosis Clinical Information Provided by Patient: Has taken Glucocorticoids Is being treated for osteoporosis Has used the following medications: Fosamax (i.e. alendronate) Patient maximum height was 66 Menopause Age: 49 No regular weight bearing exercise Drinks caffeinated beverages Onset of menses at age 11 Number of children 1 Impression: The patient has osteoporosis, based on the Right Femoral Neck T-score. The patient has risk factors, including: history of glucocorticoid therapy. Discussion: It is important to ask patients whether they are taking their medications and to encourage continued and appropriate compliance with their osteoporosis therapies to reduce fracture risk. It is also important to review their risk factors and encourage appropriate calcium and vitamin D intakes, exercise, fall prevention and other lifestyle measures. Follow-Up: Consider a repeat BMD and Vertebral Fracture Assessment (VFA) exam in 2 years or sooner if medically necessary, to reassess this patient's status. Reported by: DEENA on 01/28/2025 10:02:00 AM. Reviewed, dictated and finalized at location A.
--- OUTSIDE RECORDS SUMMARY | 2025-01-28 10:52 | XMS_ITS | Clinical Summary ---
Author Organization [facility] Address [address] [place] [address] Care Team Providers Care Shell Coremaker Name Role Phone Alvin Smith MD Primary Care Provider [phone] Source Comments [employer] [facility],non-owned Affiliates and Associated Physician Practices is amultiple site organization consisting of ambulatory clinics and hospital sitesin [place], [place], [place]. This disclosure is being madepursuant to the Care Everywhere program and may not contain all information available regarding this patient. Last updated 18.[facility] Allergies No known active allergies Medications * Be aware that medications may not be up to date on this document. Alwaysverify current medications with the patient. Medication Sig Dispensed Refills Start Date End Date Status fluticasone propionate (FLONASE) 50 MCG/ACT nasal sprayIndications:N freddie Signs and Symptoms Fisk 2 Sprays into each nostril once daily Reasons: Signs and Symptoms of Nose Diseases 1 Bottle 02/05/2017 Active Additional Information Patient not taking.Reported on 10/11/2017 alendronate (FOSAMAX) 70 MG tablet Take 70 mg by mouth every 7 days before meal Take in morning with full glass of water on empty stomach and remain upright for 30 min Active atorvastatin (LIPITOR) 40 MG tablet Take 40 mg by mouth at bedtime Active FUROSEMIDE PO Take 20 mg by mouth Ac tive levothyroxine (SYNTHROID) 50 MCG tablet Take 50 mcg by mouth daily before breakfast Active carvedilol (COREG) 12.5 MG tablet Take 12.5 mg by mouth 2 times daily with morning and evening meal Active losartan (COZAAR) 100 MG tablet Take 100 mg by mouth once daily Active aspirin (ASPIRIN) 81 MG tablet Take 81 mg by mouth once daily Active Loratadine 10 MG Active benzonatate (TESSALON PERLES) 100 MG capsuleIndications :Acute bronchitis due to Rhinovirus Take 1 capsule by mouth 3 times daily as needed for Cough 45 capsule 10/11/2017 Active Active Problems No known active problems Social History Tobacco Use Types Packs/Day Years Used Date Smoking Tobacco: Never Smokeless Tobacco: Never Sex and Gender Information Value Date Recorded Sex Assigned at Not on file Gender Identity Not on file Sexual Orientation Not on file Last Filed Vital Signs Vital Sign Reading Time Taken Comments Blood Pressure 124/68 10/11/2017 12:31 PM ESTHETICIAN FACIALIST Pulse 73 10/11/2017 12:31 PM ESTHETICIAN FACIALIST Temperature 37 C (98.6 F) 10/11/2017 12:31 PM ESTHETICIAN FACIALIST Respiratory Rate 16 10/11/2017 12:31 PM ESTHETICIAN FACIALIST Oxygen Saturation 96% 08/31/2017 10:30 AM CDT Inhaled Oxygen Concentration - - Weight 77.1 kg (170 lb) 10/11/2017 12:31 PM ESTHETICIAN FACIALIST Height 167.6 cm (5' 6 ) 10/11/2017 12:31 PM ESTHETICIAN FACIALIST Body Mass Index 27.44 10/11/2017 12:31 PM ESTHETICIAN FACIALIST Plan of Treatment Health Maintenance Due Date Last Done Comments BONE DENSITY TESTING 1954 COLOGUARD (AGES 45-75) - COL ON CA SCREENING 1954 COLON MONITORING 1954 COLONOSCOPY - COLON CA SCREENING 1954 CT COLONOGRAPHY - COLON CA SCREENING 1954 Colorectal Cancer Screening 1954 FIT - COLON CA SCREENING 1954 FLEX SIG - COLON CA SCREENING 1954 MAMMOGRAM 1954 HEPATITIS C SCREENING 05/28/1972 DTAP/TDAP/TD VACCINES (1 - Tdap) 1973 PNEUMOCOCCAL VACCINE 50+ (1 of 1 - PCV) 2004 ZOSTER VACCINE (1 of 2) 2004 SCREENING FOR DIABETES 08/31/2017 COVID-19 VACCINE ( - 2023-2 5 season) 2024 INFLUENZA VACCINE (#1) 2024 DEPRESSION SCREENING 11/14/2024 Respiratory Syncytial Virus (RSV) Vaccine Pt: or over 60 yrs (1 - 1-dose 75+ series) 2029 HEPATITIS B VACCINE Aged Out No longe r eligible based on patient's age to complete this topic HIB VACCINE Aged Out No longer eligi ble based on patient's age to complete this topic HPV VACCINE Aged Out No longer eligi ble based on patient's age to complete this topic MENINGOCOCCAL (Group B) VACC INE SHARED DECISION-MAKING Aged Out No longer eligibl e based on patient's age to complete this topic MENINGOCOCCAL GROUPS A/C/Y/W VACCINE Aged Out No longer eligible b ased on patient's age to complete this topic Care Teams Shell Coremaker Relationship Specialty Start Date End Date Alvin Smith MD [address] [place] [address] PCP - General Internal Medicine 02/05/17
--- OUTSIDE RECORDS SUMMARY | 2025-01-28 10:52 | XMS_ITS | Referral Summary ---
Author Organization [facility] Address [address] [place] [address] Care Team Providers Care Force Dispatcher Name Role Phone Mahsa oJn NP Primary Care Provider [phone] Encounters Date Type Department Care Team Description 01/08/2025 Results Follow-Up [facility] Surgery [address] [place] [phone] Nae Barnett NP 01/08/2025 12:00 PM DIVE SUPERINTENDENT - 01/08/2025 11:59 PM DIVE SUPERINTENDENT Hospital Encounter [facility] - Breast Imaging [address] [place] [id number] History of breast cancer; Encounter for screening mammogram for malignant neoplasm of breast Discharge Disposition: Discharge to home or self care 01/08/2025 11:45 AM DIVE SUPERINTENDENT Office Visit [facility] Surgery [address] [place] [phone] Nae Barnett NP Infiltrating ductal carcinoma of left breast (HCC) (Primary Dx); History of breast cancer; History of partial mastectomy of left breast; Encounter for screening mammogram for malignant neoplasm of breast 01/03/2025 1:30 PM DIVE SUPERINTENDENT Office Visit [facility]iology [address] [place] [address] Dillon Son MD Chronic HFrEF (heart failure with reduced ejection fraction) (HCC) (Primary Dx); ICD (implantable cardioverter-defibrill ator), single, in situ; NICM (nonischemic cardiomyopathy) ([facility]); Mixed hyperlipidemia 10/30/2024 Orders Only [facility] Cardiology [address] [facility] [address] [facility] [address] [place] [address] Jhon Thompson MD PhD from Last 3 Months Allergies Active Allergy Reactions Criticality Noted Date Comments Ibuprofen Shortness of breath High 04/23/2023 Lisinopril Fever Medium Medications alendronate (FOSAMAX) 70 mg tablet take 1 tablet (70MG) by oral route every week in the morning, at least 30 minutes before the first food, beverage, or medication of the day 0 0 Active atorvastatin (LIPITOR) 40 mg tabletIndicatio ns:hyperlipidem ia Take 2 tablets (80 mg total) by mouth nightly 9 Active Ascomp with Codeine per capsule Take 1 capsule by mouth as needed for migraine 2 Active levothyroxine (SYNTHROID) 50 mcg tabletIndicatio ns:hypothyroidi sm Take 1 tablet (50 mcg total) by mouth traffic sergeant before breakfast Active furosemide (LASIX) 20 mg tabletIndicatio ns:NICM (nonischemic cardiomyopathy) ([facility]) TAKE 1 TABLET DAILY 90 tablet 2 4 Active carvediloL (COREG) 12.5 mg tabletIndicatio ns:NICM (nonischemic cardiomyopathy) ([facility]) TAKE 1 TABLET TWICE A DAY WITH MEALS 180 tablet 2 4 Active losartan (COZAAR) 25 mg tablet Take 1 tablet (25 mg total) by mouth daily 90 tablet 1 4 Active Active Problems Problem Noted Date Diagnosed Date Mixed hyperlipidemia 07/20/2022 Near syncope 07/20/2022 NICM (nonischemic cardiomyopathy) 06/03/2022 Hypotension due to drugs 06/25/2020 Dizziness 06/25/2020 Encounter for fitting or adj ustment of implantable cardioverter-defibrillator (ICD) 11/20/2018 History of breast cancer 06/27/2018 Palpitations 07/13/2017 PVC's (premature ventricular contractions) 12/19 Overview (02/17/2017): PVC's (premature ventricular contractions) ICD (implantable cardioverte r-defibrillator), single, in situ 12/19/2015 Overview (02/17/2017): ICD (implantable cardioverter-defibrillator), single, in situ Chronic HFrEF (heart failure with reduced ejection fraction) 02/28/2015 Overview (02/17/2017): Chronic systolic heart failure Abnormal mammogram 09/22/2011 Resolved Problems Problem Noted Date Diagnosed Date Resolved Date Dyslipidemia 12/19/2015 07/20/2022 Overview (02/18/2017): Dyslipidemia Nonischemic cardiomyopathy (CMS/HCC) 02/28/2015 07/20/2022 Overview (02/17/2017): Nonischemic cardiomyopathy Immunizations Immunization Administration Dates Next Due Influenza, Quadrivalent, Hig h Dose, Preservative Free, Intrr 07/27/2021 Influenza, Trivalent, High D ose, Split, Preservative Free, Intramuscular 09/25/2019,08/10/2018 Moderna SARS-CoV-2 Monovalent Vaccination (12+ Y RS) 02/09/2021,01/09/2021 Pneumococcal Conjugate PCV 13 06/12/2020 Td, adsorbed 01/13/2007 Tdap 06/12/2020 ZOSTER Recombinant 06/12/2020,04/02/2019 Social History Tobacco Use Types Packs/Day Years Used Date Smoking Tobacco: Never Smokeless Tobacco: Never Alcohol Use Standard Drinks/Week Comments Yes 0 (1 standard drink = 0.6 oz pure alcohol) I have a social drink every once in a while. AUDIT-C Answer Date Recorded Q1: How often do you have a drink containing alc ohol? Monthly or less 06/03/2022 Q2: How many drinks containi ng alcohol do you have on a typical day when you are drinking? 1 or 2 06/03/2022 Q3: How often do you have si x or more drinks on one occasion? Never 06/03/2022 Comments No Sex and Gender Information Value Date Recorded Sex Assigned at Not on file Legal Sex Female 1:38 AM DIVE SUPERINTENDENT Gender Identity Not on file Sexual Orientation Straight 07/31/2020 9: 39 PM CDT Last Filed Vital Signs Vital Sign Reading Time Taken Comments Blood Pressure 117/71 01/08/2025 11:47 AM DIVE SUPERINTENDENT Pulse 58 01/08/2025 11:47 AM DIVE SUPERINTENDENT Temperature 36.5 C (97.7 F) 01/08/2025 11:47 AM DIVE SUPERINTENDENT Respiratory Rate 18 01/08/2025 11:47 AM DIVE SUPERINTENDENT Oxygen Saturation 100% 01/08/2025 11:47 AM DIVE SUPERINTENDENT Inhaled Oxygen Concentration - - Weight 59.1 kg (130 lb 3.2 oz) 01/08/2025 11:45 AM DIVE SUPERINTENDENT Height 165.1 cm (5' 5 ) 01/03/2025 1:18 PM DIVE SUPERINTENDENT Body Mass Index 21.67 01/03/2025 1:18 PM DIVE SUPERINTENDENT Plan of Treatment Not on file Medical Devices Implanted Type Area Ballet Teacher Device Identifier Shelf Expiration Date Model / Serial / Lot Icd ICD Right: Chest Wall [employer] Fortify Assura Vr [id number] Chamber Is-1 Connector [id number] - [id number] - [id number] Implanted:Qty: 1 on 06/03/2022 by Jhon Thompson MD PhD at [facility] ICD Right: Chest Wall [employer] 05/13/2024 [id number] / [id number] / Description:ICD generator Icd N/A: Chest Wall Procedures Procedure Name Priority Date/Time Associated Diagnosis Comments SCREENING MAMMOGRAM RIGHT W BRANT UNILATERAL ONLY Schedule Routine, Read Routine (OP Routine) 01/08/2025 12:10 PM DIVE SUPERINTENDENT History of breast cancer Encounter for screening mammogram for malignant neoplasm of breast POCT LIPID PANEL Routine 01/03/2025 1:12 PM DIVE SUPERINTENDENT Mixed hyperlipidemia DEVICE CHECK - REMOTE Routine 10/30/2024 4:00 AM DIVE SUPERINTENDENT from Last 3 Months Results * Screening Mammogram Right W Brant Unilateral Only (01/08/2025 12:10 PM DIVE SUPERINTENDENT) Anatomical Region Laterality Modality Breast Right Mammography Narrative 01/08/2025 3:37 PM DIVE SUPERINTENDENT Mammogram Technique: Right Breast Digital Breast Tomosynthesis, Unilateral C-view 2D Screening mammogram. Views obtained: right craniocaudal and right mediolateral oblique. Computer Aided Detection was performed. Mammogram Findings: The present examination has been compared to prior imaging studies performed at [facility] on 10/07/2021, 10/12/2022 and 01/06/2024. There are scattered areas of fibroglandular density. There is no suspicious abnormality in the right breast. Patient status post contralateral mastectomy for personal history of breast cancer. Impression: There is no mammographic evidence of malignancy. Annual screening mammography is recommended. OVERALL FINAL ASSESSMENT: BI-RADS CATEGORY 1: Negative. Procedure Note Karley Lorenz MD - 01/08/2025 Mammogram Technique: Right Breast Digital Breast Tomosynthesis, Unilateral C-view 2DScreening mammogram. Views obtained: right craniocaudal and right mediolateral oblique. Computer Aided Detection was performed. Mammogram Findings: The present examination has been compared to prior imaging studies performed at [facility] on 10/07/2021, 10/12/2022 and 01/06/2024. There are scattered areas of fibroglandular density. There is no suspicious abnormality in the right breast. Patient status post contralateral mastectomy for personal history ofbreast cancer. Impression: There is no mammographic evidence of malignancy. Annual screening mammography is recommended. OVERALL FINAL ASSESSMENT: BI-RADS CATEGORY 1: Negative. Nae Barnett NP IMG MAMMO PROCEDURES Final Result * POCT lipid panel (01/03/2025 1:12 PM DIVE SUPERINTENDENT) Cholesterol, POC 163 mg/dL Comment:GLU = 86 HDL, POC 49 mg/dL Triglycerides, POC 105 mg/dL LDL Cholesterol POC 93 mg/dL Chol/HDL Ratio, POC 1.9 Non-HDL Cholesterol, POC 114 mg/dL Cholesterol Total, POC 163 mg/dL Capillary blood 01/03/2025 1 :12 PM DIVE SUPERINTENDENT us Dillon Son MD POINT OF CARE TEST PETER JACQUES Final Result * DEVICE CHECK - REMOTE (10/30/2024 4:00 AM DIVE SUPERINTENDENT) Anatomical Region Laterality Modality Other 10/30/2024 4:00 AM DIVE SUPERINTENDENT Narrative 12/27/2024 1:22 PM DIVE SUPERINTENDENT Interpretation Summary: Battery and Leads (BL) Normal parameters noted on battery and lead(s) --- 5.4 to 7.7 years remaining (this is an estimate based on prior usage) Presenting Rhythm (CA) Ventricular Sensing (VS) --- rate 55 Arrhythmic events (AE) No new arrhythmic events in monitoring period Transmission Information (TI) Device Summary Report Procedure Note hJon Thompson MD PhD - 12/27/2024 Interpretation Summary: Battery and Leads (BL) Normal parameters noted on battery and lead(s) --- 5.4 to 7.7 yearsremaining (this is an estimate based on prior usage) Presenting Rhythm (CA) Ventricular Sensing (VS) --- rate 55 Arrhythmic events (AE) No new arrhythmic events in monitoring period Transmission Information (TI) Device Summary Report us Jhon Thompson MD PhD CV CARDIAC SERVICES CA OCEDURES Final Result from Last 3 Months Insurance MEDICARE [facility] [place] Member Subscriber Plan / Payer (Ef fective 2019-Present) Name:Mahsa Hernandez Relation to Subscriber:Self Name:Mahsa Hernandez Payer ID:[id number] Group ID:[id number] Type:COMMERCIAL Address: [address] [place], [place] MEDICARE [facility] [place] Member Subscriber Plan / Payer ( fective 2019-Present) Name:Mahsa Hernandez Relation to Subscriber:Self Name:Mahsa Hernandez Payer ID:[id number] Group ID:[id number] Type:COMMERCIAL Address: [address] [place], [place] [address] [employer] [place] Advance Directives For more information, please contact: [phone] * Full Code (Latest Code Status on File) Date Activated Date Inactivated Comments 06/03/2022 1:14 PM 06/03/2022 6:45 PM Care Teams Force Dispatcher Relationship Specialty Start Date End Date Mahsa Jon NP [id number] [facility] [address] [place] [address] [place] [id number] PCP - General Nurse Practitioner 01/03/25
--- OUTSIDE RECORDS SUMMARY | 2025-01-28 10:52 | XMS_ITS | Encounter Summary ---
Author Organization [facility] Address [address] [facility] [address] [place] [address] Phone Care Team Providers Care Instructor Correspondence School Name Role Phone Mahsa Jon NP Primary Care Provider Encounter Details Date Type Department Care Team (Late st Contact Info) Description 01/08/2025 Results Follow-Up [facility] Surgery [address] [facility] [place] Floor 8 [place] [address] Nae Barnett NP [address] [facility] [id number] [place] [address] Social History Tobacco Use Types Packs/Day Years [...] on file Legal Sex Female 1:38 AM CASE MGR Gender Identity Not on file Sexual Orientation Straight 07/31/2020 9: 39 PM CDT documented as of this encounter Plan of Treatment Not on file documented as of this encounter Visit Diagnoses Not on filedocumented in this encounter Care Teams Instructor Correspondence School Relationship Specialty Start Date End Date Mahsa Jon NP [address] [facility] [address] [place] [id number] PCP - General Nurse Practitioner 01/03/25 documented as of this encounter
--- OUTSIDE RECORDS SUMMARY | 2025-01-28 10:52 | XMS_ITS | Encounter Summary ---
Author Organization [facility] Address [address] [place] [address] Phone Care Team Providers Care Stain Maker Name Role Phone Alvin Smith MD Primary Care Provider [phone] Teodoro Funes DO Primary Care Provider [phone] Mahsa Jon NP Primary Care Provider [phone] Encounter Details Date Type Department Care Team (Late st Contact Info) Description 12/20/2017 Orders Only [facility] Provider, MD Constantine [address] [place], [place] [id number] Social History Tobacco Use Types Packs/Day Years Used Date Smoking Tobacco: Never Alcohol Use Standard Drinks/Week Comments Yes 0 (1 standard drink = 0.6 oz pur e alcohol) Comments Unknown Sex and Gender Information Value Date Recorded Sex Assigned at Not on file Legal Sex Female 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 us Historical Provider [facility] SYDNIE CARIAS Final Result documented in this encounter Visit Diagnoses Not on filedocumented in this encounter Care Teams Stain Maker Relationship Specialty Start Date End Date Alvin Smith MD [address] [place] [address] PCP - General 02/17/11 05/27/22 Teodoro Funes DO [address] [place] [address] PCP - General Family Medicine 05/28/22 01/02/25 Mahsa Jon, SALT W[employer]ER [employer] [address] [place] [address] [address] [place] [id number] PCP - General Nurse Practitioner 01/03/25 documented as of this encounter
--- OUTSIDE RECORDS SUMMARY | 2025-01-28 10:52 | XMS_ITS | Encounter Summary ---
Author Organization [facility] Address [address] [place] [address] Phone Care Team Providers Care Attending Anesthesiologist Name Role Phone Alvin Smith MD Primary Care Provider [phone] Teodoro Funes DO Primary Care Provider [phone] Mahsa Jon NP Primary Care Provider [phone] Encounter Details Date Type Department Care Team (Late st Contact Info) Description 07/07/2015 Orders Only [facility] Provider, MD Constantine [address] [place], [place] [id number] Social History Tobacco Use Types Packs/Day Years Used Date Smoking Tobacco: Never Alcohol Use Standard Drinks/Week Comments Yes 0 (1 standard drink = 0.6 oz pur e alcohol) Comments Unknown Sex and Gender Information Value Date Recorded Sex Assigned at Not on file Legal Sex Female 1:38 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 us Historical Provider [facility] SYDNIE CARIAS Final Result documented in this encounter Visit Diagnoses Not on filedocumented in this encounter Care Teams Attending Anesthesiologist Relationship Specialty Start Date End Date Alvin Smith MD [address] [place] [address] PCP - General 02/17/11 05/27/22 Teodoro Funes DO [address] [place] [address] PCP - General Family Medicine 05/28/22 01/02/25 Mahsa Jon, SPINNER FIXER [address] [place] [address] [address] [place] [address] [id number] PCP - General Nurse Practitioner 01/03/25 documented as of this encounter
--- OUTSIDE RECORDS SUMMARY | 2025-01-28 10:52 | XMS_ITS | Encounter Summary ---
Author Organization [facility] Address [address] [place] [address] Phone Care Team Providers Care Material Crew Supervisor Name Role Phone Alvin Smith MD Primary Care Provider [phone] Teodoro Funes DO Primary Care Provider [phone] Mahsa Jon NP Primary Care Provider [phone] Encounter Details Date Type Department Care Team (Late st Contact Info) Description 10/31/2017 Orders Only [facility] Provider, MD Constantine [address] [place], [place] [id number] Social History Tobacco Use Types Packs/Day Years Used Date Smoking Tobacco: Never Alcohol Use Standard Drinks/Week Comments Yes 0 (1 standard drink = 0.6 oz pur e alcohol) Comments Unknown Sex and Gender Information Value Date Recorded Sex Assigned at Not on file Legal Sex Female 1:38 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 us Historical Provider CV CARDIAC SERVICES PROCE DURES Final Result * CARDIOLOGY REPORT (10/31/2017) Anatomical Region Laterality Modality Other Narrative 10/31/2017 Ordered by an unspecified provider. us Historical Provider CV CARDIAC SERVICES PROCE DURES Final Result documented in this encounter Visit Diagnoses Not on filedocumented in this encounter Care Teams Material Crew Supervisor Relationship Specialty Start Date End Date Alvin Smith MD [address] [place] [address] PCP - General 02/17/11 05/27/22 Teodoro Funes DO [address] [place] [address] PCP - General Family Medicine 05/28/22 01/02/25 Mahsa Jon, [facility] [address] [place] [id number] PCP - General Nurse Practitioner 01/03/25 documented as of this encounter
--- OUTSIDE RECORDS SUMMARY | 2025-01-28 10:52 | XMS_ITS | Referral Summary ---
Author Organization [facility] Address [address] [facility] [place] [address] Care Team Providers Care General Machine Operator Name Role Phone Alvin Smith MD Primary Care Provider [phone] Source Comments [facility],non-owned Affiliates and Associated Physician Practices is amultiple site organization consisting of ambulatory clinics and hospital sitesin [place], [place], [place] and [place]. This disclosure is being madepursuant to the Care Everywhere program and may not contain all information available regarding this patient. Last updated 18.[facility] Allergies No known active allergies Medications * Be aware that medications may not be up to date on this document. Alwaysverify current medications with the patient. Medication Sig Dispensed Refills Start Date End Date Status fluticasone propionate (FLONASE) 50 MCG/ACT nasal sprayIndications:N freddie Signs and Symptoms [place] 2 Sprays into each nostril once daily [...] Comments Blood Pressure 124/68 10/11/2017 12:31 PM FACILITY MAINTENANCE MECHANIC Pulse 73 10/11/2017 12:31 PM FACILITY MAINTENANCE MECHANIC Temperature 37 C (98.6 F) 10/11/2017 12:31 PM FACILITY MAINTENANCE MECHANIC Respiratory Rate 16 10/11/2017 12:31 PM FACILITY MAINTENANCE MECHANIC Oxygen Saturation 96% 08/31/2017 10:30 AM CDT Inhaled Oxygen Concentration - - Weight 77.1 kg (170 lb) 10/11/2017 12:31 PM FACILITY MAINTENANCE MECHANIC Height 167.6 cm (5' 6 ) 10/11/2017 12:31 PM FACILITY MAINTENANCE MECHANIC Body Mass Index 27.44 10/11/2017 12:31 PM FACILITY MAINTENANCE MECHANIC Plan of Treatment Not on file Care Teams General Machine Operator Relationship Specialty Start Date End Date Alvin Smith MD [address] [place] [address] PCP - General Internal Medicine 02/05/17
--- OUTSIDE RECORDS SUMMARY | 2025-01-28 10:52 | XMS_ITS | Clinical Summary ---
Author Organization [facility] Address [address] [place] [address] Care Team Providers Care Group Home Worker Name Role Phone Mahsa Jon NP Primary Care Provider [phone] Allergies Active Allergy Reactions Criticality Noted Date [...] 1 tablet (50 mcg total) by mouth machine helper before breakfast Active furosemide (LASIX) 20 mg tabletIndicatio ns:NICM (nonischemic cardiomyopathy) (HCC) TAKE 1 TABLET DAILY 90 tablet 2 4 Active carvediloL (COREG) 12.5 mg tabletIndicatio ns:NICM (nonischemic cardiomyopathy) (HCC) TAKE 1 TABLET TWICE A DAY WITH [...] (CMS/HCC) 02/28/2015 07/20/2022 Overview (02/17/2017): Nonischemic cardiomyopathy Encounters Date Type Department Care Team Description 01/08/2025 12:00 PM AUTHORS MOTIVATIONAL - 01/08/2025 11:59 PM AUTHORS MOTIVATIONAL Hospital Encounter [facility] [place] - Breast Imaging [address] [place] [address] 8 [place] [address] History of breast cancer; Encounter for screening mammogram for malignant neoplasm of breast Discharge Disposition: Discharge to home or self care 01/08/2025 11:45 AM AUTHORS MOTIVATIONAL Office Visit [facility] Surgery [address] [place] [address] 8 [place] [address] Nae Barnett NP Infiltrating ductal carcinoma of left breast (HCC) (Primary Dx); History of breast cancer; History of partial mastectomy of left breast; Encounter for screening mammogram for malignant neoplasm of breast 01/08/2025 Results Follow-Up [facility] Surgery [address] [facility] Floor 8 [place] [address] Nae Barnett NP 01/03/2025 1:30 PM AUTHORS MOTIVATIONAL Office Visit [facility] Cardiology [address] [place] [address] Dillon Son MD Chronic HFrEF (heart failure with reduced ejection fraction) (HCC) (Primary Dx); ICD (implantable cardioverter-defibrill ator), single, in situ; NICM (nonischemic cardiomyopathy) (HCC); Mixed hyperlipidemia 10/30/2024 Orders Only [facility] Cardiology [address] [facility] Medical Office Building [address] [place] [address] Jhon Thompson MD PhD from Last 3 Months Immunizations Immunization Administration Dates Next Due Influenza, Quadrivalent, Hig h Dose, Preservative Free, Intrr 07/27/2021 Influenza, Trivalent, High D ose, Split, Preservative Free, Intramuscular 09/25/2019,08/10/2018 Moderna SARS-CoV-2 Monovalent Vaccination (12+ Y RS) 02/09/2021,01/09/2021 Pneumococcal Conjugate PCV 13 06/12/2020 Td, adsorbed 01/13/2007 Tdap 06/12/2020 ZOSTER Recombinant 06/12/2020,04/02/2019 Surgical History Surgery Date Site/Laterality Comments CARDIAC DEFIBRILLATOR PLACEMENT 11/14/2010 - 11/13/2011 [place] BREAST SURGERY 11/14/1994 - 11/13/1995 Left mastectomy SECTION 11/14/1981 - 11/13/1982 TONSILLECTOMY 11/14/1957 - 11/13/1958 COLONOSCOPY couple, 2010s? CATARACT EXTRACTION retina (R) 12/24/22; cataract (R) 04/07/23; (L) 04/20/23 Medical History Medical History Date Comments Hypothyroidism 2009 Hypothyroidism Hx Other Medical 1994 Breast Cancer ( Chemo & Rad Tx) Osteoarthritis Osteoarthritis Hx Other Medical 2009 Cardiomyopathy Congestive heart failure (HCC) C ongestive Heart Failure Hx Other Medical Arrhythmias PVC 's Cancer (HCC) L breast, 1994 Depression Migraines spanning many years Heart disease Osteoporosis 2009 Cataract 2022 Family History Medical History Relation Name Comments Depression Daughter Veronica Migraines Daughter Veronica migraines; Miscarriages / Stillbirths Daughter Veronica Asthma Father Sukhwinder Duncan Heart attack Father Sukhwinder Duncan Myocardial I nfarction; /Family history of myocardial infarction - (Added by TW Conv) Heart disease Father Sukhwinder Duncan Heart attack Maternal Grandmother Briana Daily [place]; C ause of : [place] Early Mother Luz Marina Duncan Heart attack Mother Luz Marina Duncan Other Mother Luz Marina Duncan aortic aneurysm; Cause of : aortic aneurysm Cancer Mother's Sister Kerri Hernandez Depression Mother's Sister Kerri Hernandez Heart attack Other Family history of myocardial infarction - Relation: Grandmother (Added by TW Conv) Asthma Sister Kerri Cancer Sister Kerri Other Sister Kerri asthma, kidney cancer; Anesthesia problems Neg Hx Relation Name Status Comments Daughter Veronica Alive Father Sukhwinder Duncan Alive Maternal Grandmother Briana Daily Mother Luz Marina Duncan (Age 35) Mother's Sister Kerri Hernandez Other Sister Kerri Alive Social History Tobacco Use Types Packs/Day Years [...] on file Legal Sex Female 1:38 AM AUTHORS MOTIVATIONAL Gender Identity Not on file Sexual Orientation Straight 07/31/2020 9: 39 PM CDT Obstetrics History Last Filed Vital Signs Vital Sign Reading Time Taken Comments Blood Pressure 117/71 01/08/2025 11:47 AM AUTHORS MOTIVATIONAL Pulse 58 01/08/2025 11:47 AM AUTHORS MOTIVATIONAL Temperature 36.5 C (97.7 F) 01/08/2025 11:47 AM AUTHORS MOTIVATIONAL Respiratory Rate 18 01/08/2025 11:47 AM AUTHORS MOTIVATIONAL Oxygen Saturation 100% 01/08/2025 11:47 AM AUTHORS MOTIVATIONAL Inhaled Oxygen Concentration - - Weight 59.1 kg (130 lb 3.2 oz) 01/08/2025 11:45 AM AUTHORS MOTIVATIONAL Height 165.1 cm (5' 5 ) 01/03/2025 1:18 PM AUTHORS MOTIVATIONAL Body Mass Index 21.67 01/03/2025 1:18 PM AUTHORS MOTIVATIONAL Plan of Treatment Health Maintenance Due Date Last Done Comments Colon Cancer Screening-Colonoscopy 1954 Depression Screening 1954 Hepatitis C Screening 1954 Osteoporosis Screening-Bone Density Scan 1954 Hepatitis B Screening 1972 Well Visit 65+ 2019 Pneumococcal vaccine 65+ (2 of 2 - PPSV23) 08/07/2020 06/12/2020 Fall Risk Assessment 06/03/2023 06/03/2022 Covid-19 Vaccine (5 - 2023-2 5 season) 2024 02/17/2022, 10/03/2021, 02/09/2021, Additional history exists Influenza Vaccine (#1) 2024 , 09/25/2019, 08/10/2018 Breast Cancer Screening-Mammogram 01/08/2026 01/08/2025, 01/06/2024, 10/12/2022, Additional history exists DTaP/Tdap/Td Vaccine (2 - Td or Tdap) 06/12/2030 06/12/2020, 01/13/2007 Zoster Vaccine Completed 06/12/2020, 04/02/2019 Medical Devices Implanted Type Area Personal Caregiver Device Identifier Shelf Expiration Date Model / Serial / Lot Icd ICD Right: Chest Wall [employer] Fortify Assura [id number] 1 Chamber Is-1 Connector [id number] - [id number] - [id number] Implanted:Qty: 1 on 06/03/2022 by Jhon Thompson MD PhD at [facility] ICD Right: Chest Wall [employer] 05/13/2024 [id number] / [id number] / Description:ICD generator Icd N/A: Chest Wall Procedures Procedure Name Priority Date/Time Associated Diagnosis Comments SCREENING MAMMOGRAM RIGHT W BRANT UNILATERAL ONLY Schedule Routine, Read Routine (OP Routine) 01/08/2025 12:10 PM AUTHORS MOTIVATIONAL History of breast cancer Encounter for screening mammogram for malignant neoplasm of breast POCT LIPID PANEL Routine 01/03/2025 1:12 PM AUTHORS MOTIVATIONAL Mixed hyperlipidemia DEVICE CHECK - REMOTE Routine 10/30/2024 4:00 AM AUTHORS MOTIVATIONAL from Last 3 Months Results * Screening Mammogram Right W Brant Unilateral Only (01/08/2025 12:10 PM AUTHORS MOTIVATIONAL) Anatomical Region Laterality Modality Breast Right Mammography Narrative 01/08/2025 3:37 PM AUTHORS MOTIVATIONAL Mammogram Technique: Right Breast Digital Breast Tomosynthesis, Unilateral C-view 2D Screening mammogram. Views obtained: right craniocaudal and right mediolateral oblique. Computer Aided Detection was performed. Mammogram Findings: The present examination has been compared to prior imaging studies performed at [facility] on 10/07/2021, 10/12/2022 and 01/06/2024. There [...] compared to prior imaging studies performed at [facility] on 10/07/2021, 10/12/2022 and 01/06/2024. There [...] * POCT lipid panel (01/03/2025 1:12 PM AUTHORS MOTIVATIONAL) Cholesterol, POC 163 mg/dL Comment:GLU = 86 HDL, POC 49 mg/dL Triglycerides, POC 105 mg/dL LDL Cholesterol POC 93 mg/dL Chol/HDL Ratio, POC 1.9 Non-HDL Cholesterol, POC 114 mg/dL Cholesterol Total, POC 163 mg/dL Capillary blood 01/03/2025 1 :12 PM AUTHORS MOTIVATIONAL Dillon Son MD POINT OF CARE TEST ORDE RABLES Final Result * DEVICE CHECK - REMOTE (10/30/2024 4:00 AM AUTHORS MOTIVATIONAL) Anatomical Region Laterality Modality Other 10/30/2024 4:00 AM AUTHORS MOTIVATIONAL Narrative 12/27/2024 1:22 PM AUTHORS MOTIVATIONAL Interpretation Summary: Battery and Leads (BL) Normal parameters noted on battery and lead(s) --- 5.4 to 7.7 years remaining (this is an estimate based on prior usage) Presenting Rhythm (DC) Ventricular Sensing (VS) --- rate 55 Arrhythmic events (AE) No new arrhythmic events in monitoring period Transmission Information (TI) Device Summary Report Procedure Note Jhon Thompson MD PhD - 12/27/2024 Interpretation Summary: Battery and Leads (BL) Normal parameters noted on battery and lead(s) --- 5.4 to 7.7 yearsremaining (this is an estimate based on prior usage) Presenting Rhythm (DC) Ventricular Sensing (VS) --- rate 55 Arrhythmic events (AE) No new arrhythmic events in monitoring period Transmission Information (TI) Device Summary Report Jhon Thompson MD PhD CV CARDIAC SERVICES DC OCEDURES Final Result from Last 3 Months Insurance MEDICARE [employer] MEDICARE PHYSICIANS [facility] [place] Advance Directives For more information, please contact: [phone] * Full Code (Latest Code Status on File) Date Activated Date Inactivated Comments 06/03/2022 1:14 PM 06/03/2022 6:45 PM Care Teams Group Home Worker Relationship Specialty Start Date End Date Mahsa Jon NP [facility] [address] [address] PCP - General Nurse Practitioner 01/03/25
--- OUTSIDE RECORDS SUMMARY | 2025-01-28 10:52 | XMS_ITS | Encounter Summary ---
Author Organization [facility] Address [address] [place] [address] Phone Care Team Providers Care Investigation Officer Name Role Phone Alvin Smith MD Primary Care Provider [phone] Teodoro Funes DO Primary Care Provider [phone] Mahsa Jon NP Primary Care Provider [phone] Encounter Details Date Type Department Care Team (Late st Contact Info) Description 03/16/2016 Orders Only [facility] Provider, MD Constantine [address] [place], [place] [id number] Social History Tobacco Use Types Packs/Day Years Used Date Smoking Tobacco: Never Alcohol Use Standard Drinks/Week Comments Yes 0 (1 standard drink = 0.6 oz pur e alcohol) Comments Unknown Sex and Gender Information Value Date Recorded Sex Assigned at Not on file Legal Sex Female 1:38 AM MEDICAL OFFICE TECHNOLOGY INSTRUCTOR Gender Identity Not on file Sexual Orientation Straight 07/31/2020 9: 39 PM CDT documented as of this encounter Plan of Treatment Not on file documented as of this encounter Procedures Procedure Name Priority Date/Time Associated Diagnosis Comments CARDIOLOGY REPORT 03/16/2016 documented in this encounter Results * CARDIOLOGY REPORT (03/16/2016) Anatomical Region Laterality Modality Other Narrative 03/16/2016 Ordered by an unspecified provider. us Historical Provider CV CARDIAC SERVICES SYDNIE CARIAS Final Result documented in this encounter Visit Diagnoses Not on filedocumented in this encounter Care Teams Investigation Officer Relationship Specialty Start Date End Date Alvin Smith MD [address] [place] [address] PCP - General 02/17/11 05/27/22 Teodoro Funes DO [address] [place] [address] PCP - General Family Medicine 05/28/22 01/02/25 Mahsa Jon, MOLD STAMPER AND REPAIRER [address] [place] [address] [address] [place] [phone] PCP - General Nurse Practitioner 01/03/25 documented as of this encounter
--- OUTSIDE RECORDS SUMMARY | 2025-01-28 10:52 | XMS_ITS | Encounter Summary ---
Author Organization [facility] Address [address] [place] [address] Phone Care Team Providers Care User Interface Designer Name Role Phone Alvin Smith MD Primary Care Provider [phone] Teodoro Funes DO Primary Care Provider [phone] Mahsa Jon NP Primary Care Provider [phone] Encounter Details Date Type Department Care Team (Late st Contact Info) Description 03/15/2016 Orders Only [facility] Provider, MD Constantine [address] [place], [place] [id number] Social History Tobacco Use Types Packs/Day Years Used Date Smoking Tobacco: Never Alcohol Use Standard Drinks/Week Comments Yes 0 (1 standard drink = 0.6 oz pur e alcohol) Comments Unknown Sex and Gender Information Value Date Recorded Sex Assigned at Not on file Legal Sex Female 1:38 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 us Historical Provider CV CARDIAC SERVICES SYDNIE CARIAS Final Result documented in this encounter Visit Diagnoses Not on filedocumented in this encounter Care Teams User Interface Designer Relationship Specialty Start Date End Date Alvin Smith MD [address] [place] [address] PCP - General 02/17/11 05/27/22 Teodoro Funes DO [address] [place] [address] PCP - General Family Medicine 05/28/22 01/02/25 Mahsa Jon, PET CREMATORY WORKER [address] [place] [address] [address] [place] [id number] PCP - General Nurse Practitioner 01/03/25 documented as of this encounter
--- OUTSIDE RECORDS SUMMARY | 2025-01-28 10:52 | XMS_ITS | Patient Health Summary ---
Author Organization [facility] Address [address] [place] [address] Care Team Providers Care Licensed Mental Health Counselor Name Role Phone Alvin Smith MD Primary Care Provider [phone] [facility],non-owned Affiliates and Associated Physician Practices is amultiple site organization consisting of ambulatory clinics and hospital sitesin [place], [place] and [place]. This disclosure is being madepursuant to the Care Everywhere program and may not contain all information available regarding this patient. Last updated 18.[facility] Allergies No known active allergies Medications * Be aware that medications may not be up to date on this document. Alwaysverify current medications with the patient. * fluticasone propionate (FLONASE) 50 MCG/ACT nasal spray(Started 02/05/2017) [place] 2 Sprays into each nostril once daily Reasons: Signs and Symptoms of Nose Diseases * alendronate (FOSAMAX) 70 MG tablet Take 70 mg by mouth every 7 days before meal Take in morning with full glass of water on empty stomach and remain upright for 30 min * atorvastatin (LIPITOR) 40 MG tablet Take 40 mg by mouth at bedtime * FUROSEMIDE PO Take 20 mg by mouth * levothyroxine (SYNTHROID) 50 MCG tablet Take 50 mcg by mouth daily before breakfast * carvedilol (COREG) 12.5 MG tablet Take 12.5 mg by mouth 2 times daily with morning and evening meal * losartan (COZAAR) 100 MG tablet Take 100 mg by mouth once daily * aspirin (ASPIRIN) 81 MG tablet Take 81 mg by mouth once daily * Loratadine 10 MG * benzonatate (TESSALON PERLES) 100 MG capsule(Started 10/11/2017) Take 1 capsule by mouth 3 times daily as needed for Cough Active Problems No known active problems Social History Tobacco Use Types Packs/Day Years Used Date Smoking Tobacco: Never Smokeless Tobacco: Never Sex and Gender Information Value Date Recorded Sex Assigned at Not on file Gender Identity Not on file Sexual Orientation Not on file Last Filed Vital Signs Vital Sign Reading Time Taken Comments Blood Pressure 124/68 10/11/2017 12:31 PM [employer] Pulse 73 10/11/2017 12:31 PM [employer] Temperature 37 C (98.6 F) 10/11/2017 12:31 PM [employer] Respiratory Rate 16 10/11/2017 12:31 PM [employer] Oxygen Saturation 96% 08/31/2017 10:30 AM CDT Inhaled Oxygen Concentration - - Weight 77.1 kg (170 lb) 10/11/2017 12:31 PM [employer] Height 167.6 cm (5' 6 ) 10/11/2017 12:31 PM [employer] Body Mass Index 27.44 10/11/2017 12:31 PM [employer] Procedures * STREP A SCREEN - POINT OF CARE (AMB) STL(Performed 08/31/2017) Performed for Viral upper respiratory illness * STREP A SCREEN - POINT OF CARE (AMB) STL(Performed 02/05/2017) Performed for Acute sinusitis, recurrence not specified, unspecified location Results * STREP A SCREEN - POINT OF CARE (AMB) STL (08/31/2017 10:43 AM CDT) Only the most recent of2 resultswithin the time period is included. Strep A Rapid POCT Negative Negative Strep A Internal Control Present Lot # [id number] Expiration Date 02/09/19 Throat ENTIRE THROAT (SURFACE REGION OF NECK) / Unknown 08/31/2017 10:43 AM CDT Frida Pettit APRN-[facility] - POINT OF CA RE ORDERABLES Care Teams Licensed Mental Health Counselor Relationship Specialty Start Date End Date Alvin Smith MD [address] [place] [id number] PCP - General Internal Medicine 02/05/17
--- OUTSIDE RECORDS SUMMARY | 2025-01-28 10:52 | XMS_ITS | Encounter Summary ---
Author Organization [facility] Address [address] [place] [address] Phone Care Team Providers Care [employer] Name Role Phone Alvin Smith MD Primary Care Provider [phone] Teodoro Funes DO Primary Care Provider [phone] Mahsa Jon NP Primary Care Provider [phone] Encounter Details Date Type Department Care Team (Late st Contact Info) Description 10/25/2016 Orders Only [facility]INCONV Provider, MD Constantine [address] [place], [place] [id number] Social History Tobacco Use Types Packs/Day Years Used Date Smoking Tobacco: Never Alcohol Use Standard Drinks/Week Comments Yes 0 (1 standard drink = 0.6 oz pur e alcohol) Comments Unknown Sex and Gender Information Value Date Recorded Sex Assigned at Not on file Legal Sex Female 1:38 AM [employer] Gender Identity Not on file Sexual Orientation Straight 07/31/2020 9: 39 PM CDT documented as of this encounter Plan of Treatment Not on file documented as of this encounter Procedures Procedure Name Priority Date/Time Associated Diagnosis Comments CARDIOLOGY REPORT 10/25/2016 CARDIOLOGY REPORT 10/25/2016 documented in this encounter Results * CARDIOLOGY REPORT (10/25/2016) Anatomical Region Laterality Modality Other Narrative 10/25/2016 Ordered by an unspecified provider. us Historical Provider [facility] CARDIAC SERVICES PROCE DURES Final Result * CARDIOLOGY REPORT (10/25/2016) Anatomical Region Laterality Modality Other Narrative 10/25/2016 Ordered by an unspecified provider. us Historical Provider CV CARDIAC SERVICES PROCE DURES Final Result documented in this encounter Visit Diagnoses Not on filedocumented in this encounter Care Teams [employer] Relationship Specialty Start Date End Date Alvin Smith MD [address] [place] [address] PCP - General 02/17/11 05/27/22 Teodoro Funes DO [address] [place] [address] PCP - General Family Medicine 05/28/22 01/02/25 Mahsa Jon, [place] [address] [place] [address] [place] [id number] PCP - General Nurse Practitioner 01/03/25 documented as of this encounter
== END 2025-01-28 09:45 | disposition home or self-care (01) ==
LOC: CHSIMG 09:46
PROVIDERS: PCP Nurse Practitioner; Visit Provider Nurse Practitioner
DX: Z78.0 Asymptomatic menopausal state (principal); M85.89 Other specified disorders of bone density and structure, multiple sites; M81.0 Age-related osteoporosis without current pathological fracture
CPT/HCPCS: 77080